=== PATIENT | male | born 1965 | race Caucasian/White ===

== ENCOUNTER → 2020-01-11 | Outpatient (CLI) | payer MEDICAID | LOC: COL.RAD 14:44 | DX: Z11.59 Encounter for screening for other viral diseases (principal); R91.1 Solitary pulmonary nodule ==

== ENCOUNTER → 2022-07-21 | Outpatient (CLI) | payer MEDICAID | LOC: COL.RAD 13:01 | DX: Z12.2 Encounter for screening for malignant neoplasm of respiratory organs (principal); R91.1 Solitary pulmonary nodule; Z79.899 Other long term (current) drug therapy ==

== ENCOUNTER → 2023-12-10 | Outpatient (CLI) | payer MEDICAID | LOC: COL.RAD 09:37 | DX: G25.0 Essential tremor (principal); G31.84 Mild cognitive impairment of uncertain or unknown etiology ==

== ENCOUNTER → 2024-08-04 | Outpatient (CLI) | payer MEDICAID | LOC: COL.RAD 12:36 | DX: F17.210 Nicotine dependence, cigarettes, uncomplicated (principal) ==